=== PATIENT | male | born 1960 | race Caucasian/White ===

== ENCOUNTER 2022-01-29 07:10 | Day surgery (SDC) | payer MEDICAID ==
[2022-01-29] MEDS ORDERED: MEPERIDINE 100 MG INJ. 100 MG/ML VIAL ONE (08:00)
[2022-01-29] MEDS ORDERED: BENZOCAINE 20% 0.5mL UD SPRAY MM ONE (09:17)
[2022-01-29] MEDS: MIDAZOLAM HCL 5 MG/5 ML VIAL ONE ×2 (09:18→09:21)
[2022-01-29 12:48] VITALS: BP_SYST 85
== END 2022-01-29 10:48 | disposition home or self-care (01) ==
LOC: SDS 07:10 → SMU 07:13 → SDS 10:48
PROVIDERS: ATTEND Internal Medicine
DX: R13.10 Dysphagia, unspecified (principal); K22.4 Dyskinesia of esophagus; K29.50 Unspecified chronic gastritis without bleeding; K21.00 Gastro-esophageal reflux disease with esophagitis, without bleeding; K44.9 Diaphragmatic hernia without obstruction or gangrene; K31.7 Polyp of stomach and duodenum; I10 Essential (primary) hypertension; E11.9 Type 2 diabetes mellitus without complications; Z79.899 Other long term (current) drug therapy; Z20.822 Contact with and (suspected) exposure to COVID-19
CPT/HCPCS: 36415; 87426; 43249; 96365; 82962; 43239; 88305; 88312; 88313; 99152; G0378; J2250; J2175